=== PATIENT | female | born 2000 | race Caucasian/White ===

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

== ENCOUNTER → 2021-11-08 | Outpatient (REF) | payer OTHER ==
[~2021-11-08] MED LIST: SILV1CRE60 TOP
[2021-11-09 13:39] LABS: FREE T4 0.75 NG/DL (0.76-1.46); THYROID STIMULATING HORMONE 10.5 uIU/ML (0.358-3.740)
== END ==
LOC: M SFHCADAM 15:43
PROVIDERS: ATTEND Physician Assistant Medical
DX: Z83.49 Family history of other endocrine, nutritional and metabolic diseases (principal)

== ENCOUNTER → 2021-11-15 | Outpatient (CLI) | payer OTHER ==
--- NOTE | 2021-11-15 16:00 | REP ---
INDICATION: RT SHOULDER PAIN. COMPARISON: None. TECHNIQUE: Neutral and Y-views of the right shoulder FINDINGS: There is widening to the acromioclavicular joint at approximately 13 mm with corticated fragments adjacent to the distal aspect of the clavicle suggesting chronic/prior AC joint dislocation. The glenoid and proximal humerus are intact and normal. IMPRESSION: Chronic AC joint dislocation. <Electronically signed by Elton Guo > 11/15/21 [id number]
== END ==
LOC: M SOG 15:23
PROVIDERS: ATTEND Orthopaedic Surgery
DX: M25.511 Pain in right shoulder (principal)

== ENCOUNTER → 2021-12-31 | Outpatient (CLI) | payer OTHER | LOC: M RAD 08:43 | PROVIDERS: ATTEND Orthopaedic Surgery | DX: S43.121A Dislocation of right acromioclavicular joint, 100%-200% displacement, initial encounter (principal); W18.30XA Fall on same level, unspecified, initial encounter; Y92.009 Unspecified place in unspecified non-institutional (private) residence as the place of occurrence of the external cause ==

== ENCOUNTER → 2022-02-15 | Outpatient (REF) | payer OTHER ==
[2022-02-15 18:01] LABS: FREE T4 0.77 NG/DL (0.76-1.46); THYROID STIMULATING HORMONE 4.55 uIU/ML (0.358-3.740)
== END ==
LOC: M SFHCADAM 14:57
PROVIDERS: ATTEND Physician Assistant Medical
DX: E03.9 Hypothyroidism, unspecified (principal)

== ENCOUNTER → 2022-05-15 | Outpatient (REF) | payer OTHER | LOC: M SFHCADAM 08:03 | PROVIDERS: ATTEND Physician Assistant Medical | DX: E03.9 Hypothyroidism, unspecified (principal) ==

== ENCOUNTER → 2022-10-31 | Outpatient (REF) | payer OTHER | LOC: M SFHCADAM 07:55 | PROVIDERS: ATTEND Physician Assistant Medical | DX: E03.9 Hypothyroidism, unspecified (principal) ==

== ENCOUNTER → 2022-12-26 | Outpatient (REF) | payer OTHER | LOC: M PLALAB 15:38 | PROVIDERS: ATTEND Advanced Practice Midwife | DX: Z12.4 Encounter for screening for malignant neoplasm of cervix (principal) ==

== ENCOUNTER → 2023-01-08 | Outpatient (CLI) | payer OTHER | LOC: M WHC 14:37 | PROVIDERS: ATTEND Advanced Practice Midwife | DX: N63.12 Unspecified lump in the right breast, upper inner quadrant (principal) ==

== ENCOUNTER → 2023-10-15 | Outpatient (CLI) | payer OTHER | LOC: M PLALAB 11:55 | PROVIDERS: ATTEND Advanced Practice Midwife | DX: N63.12 Unspecified lump in the right breast, upper inner quadrant (principal) ==

== ENCOUNTER → 2023-11-19 | Outpatient (CLI) | payer OTHER | LOC: M WHC 07:58 | PROVIDERS: ATTEND Advanced Practice Midwife | DX: N63.10 Unspecified lump in the right breast, unspecified quadrant (principal) ==

== ENCOUNTER → 2024-01-28 | Outpatient (REF) | payer OTHER ==
[2024-01-28 14:15] LABS: THYROID STIMULATING HORMONE 1.675 uIU/ML (0.55-4.78)
[2024-01-28 14:17] LABS: FREE T4 1.28 NG/DL (0.89-1.76)
== END ==
LOC: M SFHCADAM 08:41
PROVIDERS: ATTEND Physician Assistant Medical
DX: E03.9 Hypothyroidism, unspecified (principal)

== ENCOUNTER 2025-01-18 10:11 | Emergency (ER) | payer OTHER ==
[~2025-01-18] VITALS: Ht 160 cm; Wt 59.1 kg
[2025-01-18 10:17] VITALS: TEMP 97.8; O2SAT 100
[2025-01-18] MEDS ORDERED: CYCL5TAB4 PO (10:33)
[2025-01-18] MEDS ORDERED: LEVO75TA4 (10:33)
[2025-01-18 13:24] VITALS: BP 100/62
== END 2025-01-18 13:25 | disposition home or self-care (01) ==
LOC: M ED 10:11
DX: F07.81 Postconcussional syndrome (principal); Z88.1 Allergy status to other antibiotic agents; Z79.899 Other long term (current) drug therapy

== ENCOUNTER → 2025-04-14 | Outpatient (CLI) | payer OTHER, SELFPAY ==
[~2025-04-14] MED LIST changes: +CYCL5TAB4 PO; +LEVO75TA4
[2025-04-14 11:50] LABS: FREE T4 1.08 NG/DL (0.89-1.76); THYROID STIMULATING HORMONE 5.13 uIU/ML (0.55-4.78)
== END ==
LOC: M PLALAB 09:15
PROVIDERS: ATTEND Physician Assistant Medical
DX: E03.9 Hypothyroidism, unspecified (principal)